=== PATIENT | female | born 1955 | race Caucasian/White ===

== ENCOUNTER → 2016-07-02 | Day surgery (SDC) | payer BC ==
[~2016-07-02] VITALS: Ht 167.6 cm; Wt 114.8 kg
[2016-07-02] VITALS (9 sets, daily range): BP systolic 127–140; BP diastolic 67–90
[~2016-07-02] MED LIST: ABILIFY2 MG ORAL; Akten 3.5% 1ml Btl ONE; BIOTIN800 MCG PO; BSS 15ml BTL ONE; BSS 500ml btl ONE; BUPROPION HCL100 M1 ORAL; BUPROPION HCL100 MG ORAL; BUPROPION XL300 MG ORAL; Carbachol 0.01% Op Soln 1.5ml vial ONE; Dexamethasone 4mg/ml vial ONE; Diclofenac Sod 0.1% Op Soln ONE; EPINEPHrine 1mg/1ml Amp ONE; Gatifloxacin Opth Solution 0.5% ONE; KLONOPIN1 MG ORAL; LR 1000ml ONE; Lidocaine 1% MPF 10mg/ml 5ml ONE; METFORMIN HCL500 M5 PO; Midazolam 2mg/2ml Inj ONE; NS Irrig 1000ml ONE; PHENTERMINE H37.5 MG PO; Phenylephrine 2.5% Op Soln ONE; Povidone-Iodine 5% opth solution ONE; RAMIPRIL2.5 MG ORAL; Sodium Hyaluronate 14 mg/ml 0.85ml ONE; Sterile Water Irrig 1000ml IRRIG ONE; Tobradex Opth Susp 2.5ml ONE; Tropicamide 1% Opth Soln ONE; VITAMIN D400 INTLU ORAL
[2016-07-02] MEDS: Phenylephrine 2.5% Op Soln RIGHT EYE SCH ×3 (06:23→06:37)
[2016-07-02] MEDS: Tropicamide 1% Opth Soln RIGHT EYE SCH ×3 (06:24→06:37)
[2016-07-02] MEDS: Gatifloxacin Opth Solution 0.5% RIGHT EYE SCH ×3 (06:24→06:37)
[2016-07-02] MEDS: Tobradex Opth Susp 2.5ml RIGHT EYE SCH ×3 (06:24→06:38)
[2016-07-02] MEDS: Akten 3.5% 1ml Btl RIGHT EYE SCH ×3 (06:24→06:37)
[2016-07-02] MEDS: Diclofenac Sod 0.1% Op Soln RIGHT EYE SCH ×3 (06:24→06:37)
--- NOTE | 2016-07-02 07:14 | Anethesia Preoperative Eval ---
Anesthesia Pre-op PMH/ROS General Date of Evaluation: Jul 02, 2016 Time of Evaluation: 07:10 Anesthesiologist: olayinka ASA Score: ASA 2 Mallampati Score Class I : Soft palate, uvula, fauces, pillars visible Class II: Soft palate, uvula, fauces visible Class III: Soft palate, base of uvula visible Class IV: Only hard plate visible Mallampati Classification: Class III Surgeon: lakshmi Diagnosis: cataract right eye Surgical Procedure: cataract extraction right Anesthesia History: none Family History: no anesthesia problems Allergies: Coded Allergies: No Known Allergies (Unverified , 05/13/16) Medications: see eMAR Past Medical History Cardiovascular: Reports: HTN Pulmonary: Denies: COPD, SAEID, asthma, other Gastrointestinal/Genitourinary: Denies: CRI, ESRD, GERD, other Neurologic/Psychiatric: Reports: depression/anxiety Endocrine: Denies: DM, hypothyroidism, other, steroids HEENT: Reports: cataract (R) Hematology/Immune: Denies: DVT, anemia, bleeding disorder, other Musculoskeletal/Integumentary: Denies: DDD, DJD, OA, RA, edema, other Other: obesity PSxH Narrative: cataract Anesthesia Pre-op Phys. Exam Physician Exam Last Vital Signs Date Time Temp Pulse Resp B/P Pulse Ox O2 Delivery O2 Flow Rate FiO2 07/02/16 06:29 96.9 79 18 131/76 96 Room Air Constitutional: NAD Neurologic: CN 2-12 intact Cardiovascular: RRR Respiratory: CTA Gastrointestinal: S/NT/ND Airway Exam Mallampati Classification 3 MO: full Neck: thick ROM: full Dentures: no lower, no upper Anesthesia Pre-op A/P Studies Pre-op Studies: EKG - sr Risk Assessment & Plan Plan: mac Status Change Before Surgery: No Pre-Antibiotics Drug: none ARNOLDRILOTUS BRODY CHORUS MASTER Jul 02, 2016 07:13
--- NOTE | 2016-07-02 07:36 | Pre-Procedure Note/Attestation ---
Pre-Procedure Note/Attestation Complete Prior to Procedure Planned Procedure: right Procedure Narrative: cataract extraction with implant right eye Indications for Procedure Pre-Operative Diagnosis: cataract right eye Attestation I attest that I discussed the nature of the procedure; its benefits; risks and complications; and alternatives (and the risks and benefits of such alternatives ), prior to the procedure, with the patient (or the patient's legal primary care sales representative). I attest that, if there was a reasonable possibility of needing a blood transfusion, the patient (or the patient's legal primary care sales representative) was given the [facility] standardized written summary, pursuant to the Fabien Zuehl Blood Safety Act ([place] Health and Safety Code # 1645, as amended). I attest that I re-evaluated the patient just prior to the surgery and that there has been no change in the patient's H&P, except as documented below: MITCH MESSER Jul 02, 2016 07:36
--- NOTE | 2016-07-02 08:04 | Brief Operative Note ---
Immediate Post Operative Note Operative Note Pre-op Diagnosis: cataract right eye Procedure: phacoemulsification of cataract with implant right eye Post-op Diagnosis: same as pre-op Surgeon: mitch martins Disaster Recovery Specialist: none Anesthesiologist: brandy bhagat Anesthesia: MAC Specimen: none Complications: none Condition: stable Estimated Blood Loss: none Drains: none Implant(s) used?: Yes MITCH MARTINS Jul 02, 2016 08:04
--- NOTE | 2016-07-02 08:13 | Immediate Post-Op Evaluation ---
Immediate Post-Op Evalulation Immediate Post-Op Evalulation Procedure: cataract right eye Date of Evaluation: Jul 02, 2016 Time of Evaluation: 08:05 IV Fluids: 300 Blood Pressure Systolic: 130 Blood Pressure Diastolic: 60 Pulse Rate: 78 Respiratory Rate: 14 O2 Sat by Pulse Oximetry: 97 Temperature (Fahrenheit): 98.9 Nausea: No Vomiting: No Patient Status: awake, reacts, patent Hydration Status: adequate Drug: none ARNOLDRILOTUS BRODY CRNA Jul 02, 2016 08:13
--- NOTE | 2016-07-02 08:31 | 48 Hour Post Anesthesia Eval ---
Post Anesthesia Evaluation Procedure: cataract right eye Date of Evaluation: Jul 02, 2016 Time of Evaluation: 08:30 Blood Pressure Systolic: 132 0: 75 Pulse Rate: 72 O2 Sat by Pulse Oximetry: 98 Airway: patent Nausea: No Vomiting: No Hydration Status: adequate Cardiopulmonary Status: wnl Mental Status/LOC: patient returned to baseline Post-Anesthesia Complications: none Follow-up care needed: N/A LOTUS LOOMIS CRNA Jul 02, 2016 08:31
--- NOTE | 2016-07-02 20:47 | Operative Note - Dictated ---
DATE OF OPERATION: 07/02/2016 PREOPERATIVE DIAGNOSIS: Cataract, right eye. POSTOPERATIVE DIAGNOSES: Cataract, right eye. PROCEDURE: Phacoemulsification cataract, right eye, with placement of posterior chamber intraocular lens. SURGEON: Dr. Tonny Brown M.D. ([facility] [place]) SOCIAL WORK NURSE: None. ANESTHESIA: MAC/topical. ANESTHESIOLOGIST: Mila Lentz C.R.N.A. INDICATION FOR PROCEDURE: Poor vision, right eye. DESCRIPTION OF FINDINGS: Nuclear sclerotic cataract, right eye. DESCRIPTION OF PROCEDURE: The patient received a topical anesthetic block consisting of 3.5% Akten eye drops. The eye was then prepped and draped in the usual manner. A lid speculum was placed. An operating Zeiss microscope was positioned. A temporal corneal groove was made with a eliud blade. A SuperSharp blade made a stab incision at the 12 o'clock position. A 0.1 mL of 1% nonpreserved intracameral lidocaine was injected. Healon was instilled into the anterior chamber, and a 2.5/2.8 mm trapezoidal eliud blade was used to complete the temporal corneal wound. A cystotome was used to create an anterior capsular flap. Utrata forceps were used to complete the capsulorrhexis. BSS on a cannula was used to hydrodissect the nucleus. The lens nucleus was phacoemulsified in a phaco-fracture technique. Remaining cortical material was removed with the I/A and the posterior capsule was polished with the I/A on Cap Vac. Healon was reinstilled into the capsular bag and anterior chamber, and an Clark foldable one-piece posterior intraocular lens, model ZCB00, power 19.0 diopter, serial #[id number], was placed in the injector. The lens was put into the capsular bag. The I/A tip was used to remove the Healon and position the lens. The wound edge was hydrated with BSS and a blunt-tipped cannula. The wound was checked and found to be watertight. The lid speculum was removed, and a drop of TobraDex and Zymaxid was placed. A clear plastic shield was taped over the eye. The patient tolerated the procedure well and left the operating room in good condition. Tonny Brown M.D. ([facility]) DR: FANG JOB#: [id number] CC: Jacqueline Hough M.D. MTDD
== END | disposition home or self-care (01) ==
LOC: SUR 05:42
DX: H25.11 Age-related nuclear cataract, right eye (principal); I10 Essential (primary) hypertension; E66.9 Obesity, unspecified; Z68.36 Body mass index [BMI] 36.0-36.9, adult; F41.9 Anxiety disorder, unspecified; F33.1 Major depressive disorder, recurrent, moderate; L21.9 Seborrheic dermatitis, unspecified; E11.9 Type 2 diabetes mellitus without complications; M85.80 Other specified disorders of bone density and structure, unspecified site; Z87.891 Personal history of nicotine dependence
CPT/HCPCS: 66984; 82962; J0171; J1100; J2250; J2405; J7120; V2632; 94003; 94150